=== PATIENT | male | born 1935 | race Caucasian/White ===

== ENCOUNTER 2019-05-18 07:27 | Day surgery (SDC) | payer MEDICARE, BC ==
[2019-05-17 12:41] VITALS: BMI 31.3
[~2019-05-18 07:27] MED LIST: Fluorouracil 100 MG, Enoxaparin Sodium 25 MG, EPINEPHrine 0.3 MG in Ophthalmic Irrigati... IRR SCH
[2019-05-18] MEDS ORDERED: Cyclopentolate 1% Opth Drop 2 ML BOT ONE (08:17)
[2019-05-18] MEDS ORDERED: Phenylephrine 2.5% Ophth Soln 5 ML BOT ONE (08:17)
[2019-05-18] MEDS ORDERED: Midazolam HCl 2 mg/2 ml Vial ONE (09:03)
--- NOTE | 2019-05-18 12:11 | OP ---
DATE OF PROCEDURE: 05/18/2019 PREOPERATIVE DIAGNOSIS: Macular hole, right eye. POSTOPERATIVE DIAGNOSIS: Macular hole, right eye. PROCEDURE PERFORMED: Pars plana vitrectomy and membrane peel, right eye. ANESTHESIA: Local with monitored anesthesia care. PROCEDURE IN DETAIL: The patient was identified in the preoperative holding area. Appropriate informed consent for the planned surgical procedure on the right eye had been obtained. The patient was transported to the operative suite. Appropriate cardiopulmonary monitoring was established. Local anesthesia was obtained using retrobulbar modified [place] Lint lid block using 50:50 mixture of 4% lidocaine and 0.75% bupivacaine. The patient was prepped and draped in the usual sterile manner for ophthalmic surgery on the right eye. Lid speculum was placed in the right eye. A 25-gauge trocar was placed in the conjunctiva and sclera supratemporally, inferotemporally, and supranasally. Infusion line was placed inferotemporally. Light pipe and vitreous cutter were inserted to the eye. Core vitrectomy was performed. Indocyanine green dye was infused in the posterior pole x1, identifying the epiretinal membrane and internal limiting membrane. These were elevated using membrane scraper and peeled across the macula using end gripping forceps. Complete air-fluid exchange was performed with 10 minutes being allowed for fluid to drain posteriorly. Indirect ophthalmoscopy was used to exam the periphery in 360 degrees. Prophylactic laser was placed behind the sclerotomy sites. 28% sulfur hexafluoride gas was infused into the eye. Trocars removed. Eye was noted to retain pressure well. Retrobulbar Kenalog and subconjunctival Ancef were placed. Antibiotic ointment was placed. Eye was patched and shield. The patient was taken to postoperative recovery unit in good condition, having suffered no immediate perioperative complications. The patient was instructed to patch and shield on, avoid flat on back positioning, followup appointment with Dr. Dial. Job ID: [id number]
[2019-05-18] MEDS ORDERED: Lidocaine 4% PF 5 ML AMP ONE (12:29)
[2019-05-18] MEDS ORDERED: CEFAZOLIN 1 GM VIAL ONE (12:29)
[2019-05-18] MEDS ORDERED: PROPOFOL 200 MG/20 ML VIAL ONE (12:29)
[2019-05-18] MEDS ORDERED: Maxitrol 0.1% Opth Oint 3.5 GM TUBE ONE (12:29)
[2019-05-18] MEDS ORDERED: Indocyanine Green 25 MG/10 ML VIAL ONE (12:29)
[2019-05-18] MEDS ORDERED: Bupivacaine PF 0.75% SDV 10 ML ONE (12:29)
[2019-05-18] MEDS ORDERED: Lidocaine 1% PF 5 ML VIAL ONE (12:29)
[2019-05-18] MEDS ORDERED: Triamcinolone 40 MG/ML VIAL ONE (12:29)
== END 2019-05-18 11:06 | disposition home or self-care (01) ==
LOC: SDC 07:27
PROVIDERS: ATTEND Ophthalmology Retina Specialist
PROC: 08B43ZZ Excision of Right Vitreous, Percutaneous Approach (ICD-10-PCS; principal; 2019-05-18)
DX: H35.341 Macular cyst, hole, or pseudohole, right eye (principal); E11.9 Type 2 diabetes mellitus without complications; Z79.82 Long term (current) use of aspirin; Z79.84 Long term (current) use of oral hypoglycemic drugs; Z79.899 Other long term (current) drug therapy; Z91.048 Other nonmedicinal substance allergy status; Z88.8 Allergy status to other drugs, medicaments and biological substances
CPT/HCPCS: 67025; J0171; J0690; J1650; J2001; J2250; J2704; J3301; J3490; J9190